=== PATIENT | female | born 1960 | race Hispanic/Latino ===

== ENCOUNTER 2017-02-12 19:00 | Emergency (ER) | payer OTHER ==
[2017-02-12 19:18] LABS: BASOPHILS 0.6 % (0.0-2.0); EOSINOPHILS 5.3 % (0.0-6.0); EOSINOPHILS# 0.4 X 10^3uL (0.0-0.4); HEMATOCRIT 42.9 % (36.0-48.0); HEMOGLOBIN 14.8 g/dL (12.0-16.0); LYMPHOCYTES 35.4 % (20.0-40.0); LYMPHOCYTES# 2.6 X 10^3uL (0.8-3.8); MEAN CELL VOLUME 85.5 fL (80.0-100.0); MEAN CORPUS. HGB CONCENTRATION 34.5 g/dL (32.0-36.0); MEAN CORPUSCULAR HEMOGLOBIN 29.5 pg (29.0-35.0); MEAN PLATELET VOLUME 8.4 fL (7.4-10.4); MONOCYTES# 0.3 X 10^3uL (0.2-1.0); NEUTROPHILS 54.7 % (54.0-75.0); NEUTROPHILS# 4.2 X 10^3uL (2.6-6.7); PLATELET COUNT 229 X 10^3uL (130-440); RED BLOOD COUNT 5.02 X 10^6uL (4.20-6.10); RED CELL DISTRIBUTION WIDTH 11.8 % (11.5-14.5); WHITE BLOOD COUNT 7.5 X 10^3uL (3.9-10.7)
[2017-02-12 19:24] LABS: BLOOD UREA NITROGEN 27 mg/dL (7-17); CALCIUM 9.4 mg/dL (8.4-10.2); CHLORIDE 107 mmol/L (98-107); CREATININE 0.7 mg/dL (0.5-1.0); EST GLOMERULAR FILTRATION RATE > 60 mL/min; GLUCOSE 93 mg/dL (70-100); MAGNESIUM 2.2 mg/dL (1.6-2.3); POTASSIUM 3.7 mmol/L (3.5-5.1); SODIUM 141 mmol/L (137-145)
[2017-02-12 19:38] LABS: TROPONIN I < 0.012 ng/mL (0.00-0.034)
[2017-02-12] MEDS ORDERED: ENOXAPARIN SODIUM 80 MG/0.8 ML SYR SUBCUT ONE (19:41)
--- NOTE | 2017-02-12 20:19 | ER NURSING DOCUMENTATION ---
Nurse's Notes [facility] Name:Chaya Davey Age:56 yrs Sex:Female :1960 Arrival Date:02/12/2017 Time:19:00 BedTrauma-C Private MD:Glo Woo Diagnosis:Chest Pain Presentation: 02/12 19:07 Presenting complaint: Patient states: Chest pain. Transition of care: Home. lp 19:07 Acuity: MEHDI 2 lp 19:07 Method Of Arrival: Private Vehicle lp 19:35 AIR CAT ACTIVATION no other not indicated at this time. Asprin Given Given in ED 324 mg lp po. Triage Assessment: 19:32 General: Appears in no apparent distress, Behavior is crying. Pain: Complains of pain lp in anterior aspect of left upper chest Pain does not radiate. Pain currently is 4 out of 10 on a pain scale. EENT: No deficits noted. Neuro: No deficits noted. Cardiovascular: Capillary refill < 3 seconds Heart tones S1 S2 Denies. Respiratory: Breath sounds are clear bilaterally. GI: Bowel sounds present X 4 quads. : No deficits noted. Derm: No deficits noted. Musculoskeletal: No deficits noted. Historical: - Allergies: No known drug Allergies; - Home Meds: 1. None - PMHx: Hypertension; - Tetanus: unknown. - Ebola Screening: : Patient negative for fever greater than or equal to 101.5 degrees Fahrenheit, and additional compatible Ebola Virus Disease symptoms. Patient denies exposure to infectious person. Patient denies travel to an Ebola-affected area in the 21 days before illness onset. . - Immunization history: Unable to Obtain. - Social history: Smoking status: Patient states was never smoker of tobacco. Screenin:35 Infectious Disease Risk None. Abuse screen: Denies threats or abuse. Denies injuries lp from another. Nutritional screening: No deficits noted. Assessment: 19:35 See Triage Assessment done by same RN. Pain: Pain began 30 min ago. lp Vital Signs: 19:01 BP 160 / 106; Pulse 89; Resp 18; Temp 98.3(TE); Pulse Ox 95% on R/A; Weight 63 kg; lp Height 5 ft. 4 in. (162.56 cm); Pain 3/10; 19:20 BP 177 / 97 (auto/); lp 19:21 Pulse 70 MON; Resp 14; Pulse Ox 98% ; lp 19:30 BP 137 / 100 (auto/); lp 19:31 Pulse 67 MON; Resp 15; Pulse Ox 100% ; lp 20:01 BP 163 / 100 (auto/); lp 20:01 Pulse 76 MON; Resp 23; Pulse Ox 99% ; lp 20:06 Pulse 69 MON; Resp 24; Pulse Ox 99% ; lp 19:01 Body Mass Index 23.84 (63.00 kg, 162.56 cm) lp ED Course: 19:01 Patient arrived in ED. ds 19:01 Elito Navarro MD is Attending Physician. sc 19:02 Glo Woo is Private Physician. ds 19:07 Nickie Clarke RN is Primary Nurse. lp 19:07 Triage completed. lp 19:15 EKG attached lp 19:17 Port Xray Completed. hz 19:35 Valuables Remains with patient Patient has correct armband on for positive lp identification. Placed in gown. Bed in low position. Call light in reach. Side rails up X 1. Cardiac Monitoring On for Nurse Monitoring only. Pulse Ox - RN Monitoring Only NIBP On - RN Monitoring Only. 19:36 Oxygen Oxygen administration via nasal cannula @ 2L/min. lp 20:08 Gerardo Newsome MD is Referral Physician. sc 20:08 Osmany Arevalo MD is Referral Physician. sc Administered Medications: 19:14 Drug: Aspirin 81 mg, 4 tabs, total of 324 mg - Aspirin 81 mg; Route: PO; lp 19:31 Follow up: Response: No adverse reaction; No change in condition lp 19:30 Drug: Lovenox 1 mg/kg; {Note: 63mg given.} Route: Sub-Q; Site: right lower abdomen; lp 20:08 Follow up: Response: No adverse reaction; No change in condition lp Outcome: 20:09 Discharge ordered by . sc 20:17 AMA: AMA form signed lp 20:17 Condition: unchanged 20:17 Instructed on follow up and referral plans. medication usage, need to admit 20:18 Patient left the ED. lp / 10:14 Discharge F/U Call: Unable to reach: no answer st Signatures: Sade Eaton RN RN Nickie Clarke RN RN lp Srot, Ashley, Reg Reg Eliot Espinoza MD MD sc [place]
--- NOTE | 2017-02-12 20:19 | ER PHYSICIAN DOCUMENTATION ---
Physician Documentation [facility] Name:Chaya Davey Age:56 yrs Sex:Female :1960 Arrival Date:02/12/2017 Time:19:00 BedTrauma-C Private MD:Glo Woo ED, Scott Disposition: 02/12 19:46 Critical Care: not applicable. sc Disposition: 02/12/17 20:09 Discharged to Home/Self Care. Impression: Chest Pain. - Condition is Serious. - Discharge Instructions: CHEST PAIN, Uncertain Cause. - Medical Reconciliation form form. - Follow up: Gerardo Newsome MD; When: Tomorrow; Reason: Continuance of care. Follow up: Osmany Arevalo MD; When: Tomorrow; Reason: Continuance of care. - Problem is new. - Symptoms have improved. HPI: 19:37 This 56 yrs old Female presents to ER via Private Vehicle with complaints of sc Chest Pain. 19:37 The patient or guardian reports chest pain that is located primarily in the anterior sc chest wall. Onset: 20 minute(s) ago. The pain does not radiate. There has been no movement of pain. Associated signs and symptoms: Pertinent positives: shortness of breath. The chest pain is described as a pressure. Duration: The patient or guardian reports a single episode, that lasted 20 minute(s). Modifying factors: The symptoms are alleviated by nothing. the symptoms are aggravated by nothing. Severity of pain: At its worst the pain was moderate in the emergency department the pain has resolved. Historical: - Allergies: No known drug Allergies; - Home Meds: 1. None - PMHx: Hypertension; - Tetanus: unknown. - Ebola Screening: : Patient negative for fever greater than or equal to 101.5 degrees Fahrenheit, and additional compatible Ebola Virus Disease symptoms. Patient denies exposure to infectious person. Patient denies travel to an Ebola-affected area in the 21 days before illness onset. . - Immunization history: Unable to Obtain. - Social history: Smoking status: Patient states was never smoker of tobacco. ROS: 19:44 Constitutional: Negative for fever, chills, and weight loss. sc Eyes: Negative for injury, pain, redness, and discharge. ENT: Negative for injury, pain, and discharge. Neck: Negative for injury, pain, and swelling. Respiratory: Negative for shortness of breath, cough, wheezing, and pleuritic chest pain. Abdomen/GI: Negative for abdominal pain, nausea, vomiting, diarrhea, and constipation. Back: Negative for injury and pain. MS/Extremity: Negative for injury and deformity. Skin: Negative for injury, rash, and discoloration. 19:44 Neuro: Negative for headache, weakness, numbness, tingling, and seizure. sc 19:44 Cardiovascular: Positive for chest pain, Negative for edema, orthopnea, palpitations, paroxysmal nocturnal dyspnea. 19:44 Psych: Positive for anxiety. Exam: Constitutional: This is a well developed, well nourished patient who is awake, alert, and in no acute distress. Head/Face: Normocephalic, atraumatic. Eyes: Pupils equal round and reactive to light, extra-ocular motions intact. Lids and lashes normal. Conjunctiva and sclera are non-icteric and not injected. Cornea within normal limits. Periorbital areas with no swelling, redness, or edema. ENT: Nares patent. No nasal discharge, no septal abnormalities noted. Tympanic membranes are normal and external auditory canals are clear. Oropharynx with no redness, swelling, or masses, exudates, or evidence of obstruction, uvula midline. Mucous membranes moist. Neck: Trachea midline, no thyromegaly or masses palpated, and no cervical lymphadenopathy. Supple, full range of motion without nuchal rigidity, or vertebral point tenderness. No meningismus. Chest/axilla: Normal chest wall appearance and motion. Nontender with no deformity. No lesions are appreciated. Cardiovascular: Regular rate and rhythm with a normal S1 and S2. No gallops, murmurs, or rubs. Normal PMI, no JVD. No pulse deficits. Respiratory: Lungs have equal breath sounds bilaterally, clear to auscultation and percussion. No rales, rhonchi or wheezes noted. No increased work of breathing, no retractions or nasal flaring. Abdomen/GI: Soft, non-tender, with normal bowel sounds. No distension or tympany. No guarding or rebound. No evidence of tenderness throughout. Back: No spinal tenderness. No costovertebral tenderness. Full range of motion. 19:45 Skin: Warm, dry with normal turgor. Normal color with no rashes, no lesions, and no sc evidence of cellulitis. 19:45 Cardiovascular: Rate: Rhythm: regular. 19:45 Respiratory: the patient does not display signs of respiratory distress. Vital Signs: 19:01 BP 160 / 106; Pulse 89; Resp 18; Temp 98.3(TE); Pulse Ox 95% on R/A; Weight 63 kg; lp Height 5 ft. 4 in. (162.56 cm); Pain 3/10; 19:20 BP 177 / 97 (auto/); lp 19:21 Pulse 70 MON; Resp 14; Pulse Ox 98% ; lp 19:30 BP 137 / 100 (auto/); lp 19:31 Pulse 67 MON; Resp 15; Pulse Ox 100% ; lp 20:01 BP 163 / 100 (auto/); lp 20:01 Pulse 76 MON; Resp 23; Pulse Ox 99% ; lp 20:06 Pulse 69 MON; Resp 24; Pulse Ox 99% ; lp 19:01 Body Mass Index 23.84 (63.00 kg, 162.56 cm) lp MDM: 19:01 Patient medically screened. sc 19:15 EKG attached lp 19:45 Differential diagnosis: acute myocardial infarction, anxiety, chest wall pain, sc gastroesophageal reflux disease (GERD). Patient took aspirin in the Emergency Department. Patient did not receive fibrinolytic due to na. Data reviewed: vital signs, nurses notes, old medical records, lab test result(s), EKG, radiologic studies, and as a result, I will continue to observe the patient. 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 ECG:. 20:07 Counseling: I had a detailed discussion with the patient and/or guardian regarding: the sc historical points, exam findings, and any diagnostic results supporting the discharge/admit diagnosis, lab results, radiology results, the need for further work-up and treatment in the hospital, risk of leaving the Emergency Department, without completed treatment, Patients and I tried to get her to stay for obs and cardiology eval in AM but she refused and said she would sign out AMA. 02/12 19:22 Order name: CBC AUTO DIF, MDIF/RMOR IF IND; Complete Time: 20:00 EDMS 02/12 19:34 Interpretation: Normal. sc 02/12 19:39 Order name: BASIC METABOLIC PANEL; Complete Time: 20:00 [facility] 02/12 20:00 Interpretation: Normal. ak 02/12 19:39 Order name: MAGNESIUM; Complete Time: 20:00 [facility] 02/12 20:00 Interpretation: Normal. ak 02/12 19:39 Order name: TROPONIN I; Complete Time: 20:00 [facility] 02/12 20:00 Interpretation: Normal. ak 02/13 07:15 Order name: CHEST; SINGLE VIEW [id number] [facility] 02/12 19:02 Order name: 12-lead EKG; Complete Time: 19:14 ak 02/12 19:02 Order name: Iv Saline Lock; Complete Time: 19:14 ak 02/12 19:02 Order name: Place Patient On Monitor; Complete Time: :14 ak 02/12 19:02 Order name: Pulse Ox Continuous; Complete Time: :14 ak EC:45 Rate is 85 beats/min. Rhythm is regular. QRS Fabius is Normal. AL interval is normal. QRS sc interval is normal. QT interval is normal. No Q waves. T waves are Normal. No ST changes noted. Clinical impression: Abnormal EKG without significant change. Interpreted by me. Reviewed by me. Dispensed Medications: 19:14 Drug: Aspirin 81 mg, 4 tabs, total of 324 mg - Aspirin 81 mg; Route: PO; lp 19:31 Follow up: Response: No adverse reaction; No change in condition lp 19:30 Drug: Lovenox 1 mg/kg; {Note: 63mg given.} Route: Sub-Q; Site: right lower abdomen; lp 20:08 Follow up: Response: No adverse reaction; No change in condition Signatures: Nickie Clarke RN RN Eliot Navarro MD MD ak
--- NOTE | 2017-02-13 07:12 | RADIOLOGY REPORT ---
A limited single portable view of the chest, without prior films for comparison , demonstrates the heart and vessels to be unremarkable. The lung henry are clear. No infiltrate, fluid or pneumothorax is seen. IMPRESSION: Unremarkable limited single portable view of the chest. MTDD
== END 2017-02-12 20:19 | disposition home or self-care (01) ==
LOC: ER 19:00
DX: R07.9 Chest pain, unspecified (principal); R94.31 Abnormal electrocardiogram [ECG] [EKG]; I10 Essential (primary) hypertension
CPT/HCPCS: 71010; 80048; 83735; 84484; 85025; 93005; 96372; 99284; J1650